=== PATIENT | female | born 1945 | race Caucasian/White ===

== ENCOUNTER → 2016-10-10 | Outpatient (CLI) | payer OTHER, MEDICARE | END | disposition home or self-care (01) | LOC: PCVCCLINIC 15:40 | PROVIDERS: ATTEND Internal Medicine Cardiovascular Disease | DX: I42.9 Cardiomyopathy, unspecified (principal); E78.5 Hyperlipidemia, unspecified; R00.0 Tachycardia, unspecified; E11.9 Type 2 diabetes mellitus without complications; Z79.4 Long term (current) use of insulin; Z79.899 Other long term (current) drug therapy | CPT/HCPCS: 80061; 93005; G0463 ==

== ENCOUNTER → 2016-10-11 | Outpatient (CLI) | payer OTHER, MEDICARE ==
--- NOTE | 2016-10-11 09:55 | PCVCIMAG ---
APPROVED REPORT Study performed: 10/11/2016 07:54:22 EXAM: Comprehensive 2D, Doppler, and color-flow Echocardiogram Patient Location: Echo lab Status: routine Other Information Study Quality: Adequate Risk Factors: Cardiac Risk Factors: Hyperlipidemia, SOB Indications Diabetes Dyspnea 2D Dimensions LVEF(%): 58.44 (>50%) IVSd: 10.87 (7-11mm) LVDd: 42.90 mm PWd: 10.12 (7-11mm) LVDs: 29.76 (25-40mm) Left Atrium: 43.32 (27-40mm) Aortic Root: 30.74 mm LV Single Plane 4CH: 57.62 % LV Single Plane 2CH: 57.28 %Salazar's LVEF: 57.45 % Biplane EF: 57.4 % Volumes Left Atrial Volume (Systole) Single Plane 4CH: 49.75 mLSingle Plane 2CH: 55.19 mL LA ESV Index: 29.00 mL/m2 Aortic Valve AoV Peak Jose Francisco.: 1.32 m/s AO Peak Gr.: 6.93 mmHgLVOT Max P.11 mmHg LVOT Max V: 0.88 m/s Mitral Valve E/A Ratio: 0.9 MV Decel. Time: 210.78 ms MV E Max Jose Francisco.: 0.86 m/s MV A Jose Francisco.: 0.98 m/s IVRT: 103.81 ms Pulmonary Valve PV Peak Jose Francisco.: 0.93 m/sPV Peak Gr.: 3.45 mmHg Pulmonary Vein P Vein S: 0.43 m/sP Vein A: 0.32 m/s P Vein D: 0.46 m/sP Vein A Dur.: 128.0 msec P Vein S/D Ratio: 0.93 Tricuspid Valve TR Peak Jose Francisco.: 2.32 m/s TR Peak Gr.: 21.53 mmHg TV Vmax: 0.48 m/s Left Ventricle The left ventricle is normal size. There is normal LV segmental wall motion. There is normal left ventricular wall thickness. Left ventricular systolic function is normal. The left ventricular ejection fraction is within the normal range. LVEF is 55-60%. Grade I - abnormal relaxation pattern. Right Ventricle The right ventricle is normal size. The right ventricular systolic function is normal. Atria The left atrium size is normal. The right atrium size is normal. Aortic Valve The aortic valve is normal in structure. No aortic regurgitation is present. There is no aortic valvular stenosis. Mitral Valve The mitral valve is normal in structure. There is no mitral valve regurgitation noted. No evidence of mitral valve stenosis. Tricuspid Valve The tricuspid valve is normal in structure. Trace tricuspid regurgitation with PAP of 29 mmHg. Pulmonic Valve The pulmonary valve is normal in structure. Trace pulmonic regurgitation. Great Vessels The aortic root is normal in size. IVC is normal in size and collapses with >50% inspiration Pericardium There is no pericardial effusion. <Conclusion> The left ventricle is normal size. There is normal left ventricular wall thickness. LVEF is 55-60%. Grade I - abnormal relaxation pattern. The right ventricle is normal size. The left atrium size is normal. The aortic valve is normal in structure. There is no mitral valve regurgitation noted. Trace tricuspid regurgitation with PAP of 29 mmHg. There is no pericardial effusion.
--- NOTE | 2016-10-11 09:57 | PCVCIMAG ---
APPROVED REPORT Patient Location: Out-Patient Indications Bruit Stenosis Doppler Spectral Velocity Analysis PSV / EDVPSV / EDV ECA (R) 46 / 3 cm/sECA (L) 37 / 4 cm/s dICA (R) 52 / 23 cm/sdICA (L) 40 / 16 cm/s Ana (R) 63 / 18 cm/smICA (L) 60 / 19 cm/s pICA (R) 65 / 21 cm/spICA (L) 55 / 15 cm/s Bulb (R) 54 / 10 cm/sBulb (L) 67 / 15 cm/s dCCA (R) 47 / 9 cm/sdCCA (L) 78 / 18 cm/s mCCA (R) 52 / 11 cm/smCCA (L) 70 / 14 cm/s Vert (R) 50 / 14 cm/sVert (L) 76 / 22 cm/s Findings The right carotid bulb has no significant plaque. The right proximal internal carotid artery shows no significant stenosis. The right common carotid artery shows no significant stenosis. The right external carotid artery shows no significant stenosis. The left carotid bulb has no significant plaque. The left proximal internal carotid artery shows no significant stenosis. The left common carotid artery shows no significant stenosis. The left external carotid artery shows no significant stenosis. Conclusion 1. No significant stenosis involving either carotid artery 2. Antegrade vertebral flow
== END | disposition home or self-care (01) ==
LOC: PCVCIMAG 07:53
PROVIDERS: ATTEND Internal Medicine Cardiovascular Disease
DX: I07.1 Rheumatic tricuspid insufficiency (principal); I37.1 Nonrheumatic pulmonary valve insufficiency; E11.9 Type 2 diabetes mellitus without complications; R06.02 Shortness of breath; R09.89 Other specified symptoms and signs involving the circulatory and respiratory systems
CPT/HCPCS: 93306; 93880

== ENCOUNTER → 2016-10-13 | Outpatient (CLI) | payer OTHER, MEDICARE ==
--- NOTE | 2016-10-13 17:12 | PCVCIMAG ---
APPROVED REPORT Exam: Nuclear Stress Test Indication: Chest pressure, Chest heaviness, Dyspnea Patient Location: Out-Patient Stress Nurse: Sophia Funk RN, Janie Daly RN IN Tech:Haley ArechigahbunLEWIS Ht: 4 ft 11 in Wt: 200 lbs BSA: 1.84 m2 HR: 77 bpm BP: 140/68 mmHg BMI: 40.3 Rhythm: NSR Medical History Medical History: Diabetic Insulin, Cardiomyopathy, CHF, Hyperlipidemia, Dyspnea Medications: Lisinopril, Atorvastatin, Bystolic (held 24 hours) Vascepa Allergies: No known drug allergies Cardiac Risk Factors: Age Pretest Chest Pain Characteristics: No chest pain Exercise History: Sedentary NM EXAM: Myocardial Perfusion REST/STRESS Pharmacologic Stress Pharmacologic stress test was performed by injecting Regadenoson 0.4 mg IV push followed by the intravenous injection of 32 mCi of Tc-99m Sestamibi. Time of stress injection: 1320 Date: 10/13/2016 Administration Route: IV Administration Site: Left AC Gated Stress SPECT was performed 45 minutes after stress injection. The images were gated to evaluate regional wall motion and calculate left ventricular ejection fraction. Study Quality Study: Good Study Data Post stress, the left ventricular ejection was 63%.. SSS: 0 SRS: SDS: 0 Perfusion No evidence of stress induced ischemia or prior myocardial infarction. Wall Motion Normal left ventricular size and function with no regional wall motion abnormalities. Nuclear Conclusion No evidence of stress induced ischemia or prior myocardial infarction. Normal left ventricular size and function with no regional wall motion abnormalities. Post stress, the left ventricular ejection was 63%.. No prior study available for comparison. Interpreted by: Jareth Rodriguez MD Electronically Approved: 10/13/2016 16:13:27 Stress Test Details Stress Test: Pharmacologic stress was paired with low level exercise. Reason for pharmacologic stress test: physical limitation. HR Resting HR: 77 bpmMax Heart Rate (APMHR): 151 bpm Max HR Achieved: 118 bpmTarget HR (85% APMHR): 128 bpm % of APMHR: 78 Recovery HR: 81 bpm BP Resting BP: 140/68 mmHg Max BP: 182/74 mmHg Recovery BP: 146/80 mmHg ECG Resting ECG: Sinus Rhythm Stress ECG: Sinus Tachycardia ST Change: Non-ischemic Maximum ST Deviation: 1 mm Arrhythmia: None Recovery ECG: Sinus Rhythm, NSSTT changes Clinical Reason for Termination: Completed protocol Stress Symptoms: Dyspnea, , Light-headed Exercise duration: 4 min 00 sec Exercise capacity: 1.6 METs Symptoms resolved during recovery.
--- NOTE | 2016-10-14 14:32 | PCVCIMAG ---
Exam: Nuclear Stress Test Indication: Chest pressure, Chest heaviness, Dyspnea Patient Location: Out-Patient Stress Nurse: Sophia Funk RN, Janie Daly RN MD Tech:LEWIS Can Ht: 4 ft 11 in Wt: 200 lbs BSA: 1.84 m2 HR: 77 bpm BP: 140/68 mmHg BMI: 40.3 Rhythm: NSR Medical History Medical History: Diabetic Insulin, Cardiomyopathy, CHF, Hyperlipidemia, Dyspnea Medications: Lisinopril, Atorvastatin, Bystolic (held 24 hours) Vascepa Allergies: No known drug allergies Cardiac Risk Factors: Age Pretest Chest Pain Characteristics: No chest pain Exercise History: Sedentary NM EXAM: Myocardial Perfusion REST/STRESS Pharmacologic Stress Pharmacologic stress test was performed by injecting Regadenoson 0.4 mg IV push followed by the intravenous injection of 32 mCi of Tc-99m Sestamibi. Time of stress injection: 1320 Date: 10/13/2016 Administration Route: IV Administration Site: Left AC Gated Stress SPECT was performed 45 minutes after stress injection. The images were gated to evaluate regional wall motion and calculate left ventricular ejection fraction. Study Quality Study: Good Study Data Post stress, the left ventricular ejection was 63%.. SSS: 0 SRS: SDS: 0 Perfusion No evidence of stress induced ischemia or prior myocardial infarction. Wall Motion Normal left ventricular size and function with no regional wall motion abnormalities. Nuclear Conclusion No evidence of stress induced ischemia or prior myocardial infarction. Normal left ventricular size and function with no regional wall motion abnormalities. Post stress, the left ventricular ejection was 63%.. No prior study available for comparison. Interpreted by: Jareth Rodriguez MD Electronically Approved: 10/13/2016 16:13:27 Stress Test Details Stress Test: Pharmacologic stress was paired with low level exercise. Reason for pharmacologic stress test: physical limitation. HR Resting HR: 77 bpm Max Heart Rate (APMHR): 151 bpm Max HR Achieved: 118 bpm Target HR (85% APMHR): 128 bpm % of APMHR: 78 Recovery HR: 81 bpm BP Resting BP: 140/68 mmHg Max BP: 182/74 mmHg Recovery BP: 146/80 mmHg ECG Resting ECG: Sinus Rhythm Stress ECG: Sinus Tachycardia ST Change: Non-ischemic Maximum ST Deviation: 1 mm Arrhythmia: None Recovery ECG: Sinus Rhythm, NSSTT changes Clinical Reason for Termination: Completed protocol Stress Symptoms: Dyspnea, , Light-headed Exercise duration: 4 min 00 sec Exercise capacity: 1.6 METs Symptoms resolved during recovery. DICTATED and SIGNED BY: KERMIT STEWART MD DATE: 10/13/16 1611 CC: MOJGAN SIM; KERMIT STEWART MD ~ MTDD
== END | disposition home or self-care (01) ==
LOC: EDSTATUS 06:34 → PCVCIMAG 12:51
PROVIDERS: ATTEND Internal Medicine Cardiovascular Disease
DX: I50.9 Heart failure, unspecified (principal); I42.9 Cardiomyopathy, unspecified; E11.9 Type 2 diabetes mellitus without complications; E78.5 Hyperlipidemia, unspecified; R00.0 Tachycardia, unspecified; Z79.4 Long term (current) use of insulin
CPT/HCPCS: 78451; 93017; A9500; 78452

== ENCOUNTER → 2018-06-26 | Outpatient (CLI) | payer OTHER, MEDICARE ==
--- NOTE | 2018-06-26 19:56 | PCVCIMAG ---
EXAM: BILATERAL LOWER EXTREMITY ARTERIAL DUPLEX INDICATION: Peripheral Arterial Disease. Leg pain. FINDINGS: Right Leg: Satisfactory arterial waveforms throughout the common/profunda/superficial femoral, popliteal, anterior tibial, peroneal, and posterior tibial arteries. No flow limiting stenosis seen. Left Leg: Satisfactory arterial waveforms throughout the common/profunda/superficial femoral, popliteal, anterior tibial, peroneal, and posterior tibial arteries. No flow limiting stenosis seen. IMPRESSION: No flow limiting stenosis in the right lower extremity. No flow limiting stenosis in the left lower extremity. LOC:[id number]
== END | disposition home or self-care (01) ==
LOC: PCVCIMAG 14:31
PROVIDERS: ATTEND Internal Medicine Cardiovascular Disease
DX: I73.9 Peripheral vascular disease, unspecified (principal)
CPT/HCPCS: 93925